=== PATIENT | female | born 1975 | race Hispanic/Latino ===

== ENCOUNTER 2019-03-06 13:31 | Emergency (ER) | payer BC ==
[2019-03-06 15:39] LABS: Absolute Lymphocytes (CBC) 2.8 K/uL (0.7-4.9); Absolute Monocytes 0.6 K/uL (0.1-1.3); Absolute Neutrophil 4.7 K/uL (1.8-8.0); Basophils % 1.1 % (0-1.3); Eosinophils % 3.3 % (0-4.4); Hematocrit 41.2 % (36.0-45.0); Lymphocytes % 33.3 % (15.3-44.8); MPV 9.4 fL (7.6-11.3)
[2019-03-06 15:50] LABS: Potassium 4.5 mmol/L (3.5-5.1)
[2019-03-06 16:02] LABS: Urine Blood 3+ (NEG); Urine Glucose NEGATIVE (NEG); Urine Protein 3+ (NEG); Urine pH 8.5 (5.0-7.0)
[2019-03-06 16:32] LABS: Blood Morphology Comment NOT SEEN (NOT SEEN); Platelet Estimate ADEQ; Urine White Blood Cell Casts OK
--- NOTE | 2019-03-06 17:39 | EDPHYS ---
Physician Documentation [facility] Name: Rose Mary Quintanilla Age: 43 yrs Sex: Female : 1975 Arrival Date: 03/06/2019 Time: 13:33 Bed 8 Private MD: ED Physician Joe Green HPI: 03/06 15:00 This 43 yrs old Female presents to ER via Ambulatory with complaints of pm1 Abdominal Pain. 15:00 The patient presents with abdominal pain in the left lower quadrant. Onset: The pm1 symptoms/episode began/occurred 2 day(s) ago. The symptoms do not radiate. Associated signs and symptoms: Pertinent positives: vaginal bleeding, Pertinent negatives: nausea, vomiting, and diarrhea. The symptoms are described as crampy. Modifying factors: The symptoms are alleviated by nothing, the symptoms are aggravated by nothing. Severity of pain: in the emergency department the pain is unchanged. The patient has not experienced similar symptoms in the past. The patient has been recently seen by a physician: Logan for vaginal bleeding for the past 2 months. Mirena placed 2 weeks ago. Patient with LLQ pain for the last two days. Onset after exercising legs. 15:00 LLQ pain radiates down his left leg. pm1 Historical: - Allergies: 13:44 No Known Allergies; aa5 - PMHx: 13:44 Thyroid problem; aa5 - PSHx: 13:44 Tubal ligation; aa5 - Immunization history:: Adult Immunizations unknown. - Social history:: Smoking status: Patient/guardian denies using tobacco. - Ebola Screening: : No symptoms or risks identified at this time. ROS: 15:00 Constitutional: Negative for fever, chills, and weight loss, Eyes: Negative for injury, pm1 pain, redness, and discharge, ENT: Negative for injury, pain, and discharge, Neck: Negative for injury, pain, and swelling, Cardiovascular: Negative for chest pain, palpitations, and edema, Respiratory: Negative for shortness of breath, cough, wheezing, and pleuritic chest pain. 15:00 Back: Negative for injury and pain, : Negative for injury, bleeding, discharge, and swelling, MS/Extremity: Negative for injury and deformity, Skin: Negative for injury, rash, and discoloration, Neuro: Negative for headache, weakness, numbness, tingling, and seizure. 15:00 Abdomen/GI: Positive for abdominal pain, of the left lower quadrant, Negative for nausea, vomiting, and diarrhea. Exam: 15:00 Constitutional: This is a well developed, well nourished patient who is awake, alert, pm1 and in no acute distress. Head/Face: Normocephalic, atraumatic. Eyes: Pupils equal round and reactive to light, extra-ocular motions intact. Lids and lashes normal. Conjunctiva and sclera are non-icteric and not injected. Cornea within normal limits. Periorbital areas with no swelling, redness, or edema. ENT: Nares patent. No nasal discharge, no septal abnormalities noted. Tympanic membranes are normal and external auditory canals are clear. Oropharynx with no redness, swelling, or masses, exudates, or evidence of obstruction, uvula midline. Mucous membranes moist. Neck: Trachea midline, no thyromegaly or masses palpated, and no cervical lymphadenopathy. Supple, full range of motion without nuchal rigidity, or vertebral point tenderness. No Meningismus. Chest/axilla: Normal chest wall appearance and motion. Nontender with no deformity. No lesions are appreciated. Cardiovascular: Regular rate and rhythm with a normal S1 and S2. No gallops, murmurs, or rubs. Normal PMI, no JVD. No pulse deficits. Respiratory: Lungs have equal breath sounds bilaterally, clear to auscultation and percussion. No rales, rhonchi or wheezes noted. No increased work of breathing, no retractions or nasal flaring. Back: No spinal tenderness. No costovertebral tenderness. Full range of motion. Skin: Warm, dry with normal turgor. Normal color with no rashes, no lesions, and no evidence of cellulitis. MS/ Extremity: Pulses equal, no cyanosis. Neurovascular intact. Full, normal range of motion. 15:00 Abdomen/GI: Inspection: abdomen appears normal, Palpation: soft, mild abdominal tenderness, in the left lower quadrant, mass, is not appreciated, rebound tenderness, is not appreciated. 15:00 Neuro: Orientation: is normal, Motor: is normal, Sensation: is normal, no obvious gross deficits, Gait: is steady, at a normal pace, without difficulty. Vital Signs: 13:44 BP 126 / 81; Pulse 82; Resp 16 S; Temp 98.2(TE); Pulse Ox 100% on R/A; Weight 72.57 kg aa5 (R); Height 5 ft. 6 in. (167.64 cm) (R); Pain 6/10; 15:00 BP 118 / 78; Pulse 76; Resp 18; Pulse Ox 99% on R/A; ph 16:00 BP 131 / 78; Pulse 75; Resp 18; Pulse Ox 99% ; ph 17:00 BP 129 / 89; Pulse 74; Resp 18; Pulse Ox 100% ; ph 18:15 BP 120 / 74; Pulse 75; Resp 18; Temp 97.9; Pulse Ox 100% on R/A; ph 13:44 Body Mass Index 25.82 (72.57 kg, 167.64 cm) aa5 MDM: 14:08 Patient medically screened. pm1 17:36 Data reviewed: vital signs. Data interpreted: Pulse oximetry: on room air is 100 %. pm1 Interpretation: normal. Counseling: I had a detailed discussion with the patient and/or guardian regarding: the historical points, exam findings, and any diagnostic results supporting the discharge/admit diagnosis, lab results, radiology results, the need for outpatient follow up, to return to the emergency department if symptoms worsen or persist or if there are any questions or concerns that arise at home. 03/06 14:38 Order name: Basic Metabolic Panel; Complete Time: 16:21 pm1 03/06 14:38 Order name: CBC with Diff; Complete Time: 16:40 pm1 03/06 14:38 Order name: CT Abd/Pelvis - W/Contrast pm1 03/06 15:29 Order name: Urine Dipstick--Ancillary (enter results); Complete Time: 16:21 bd 03/06 15:29 Order name: Urine --Ancillary (enter results); Complete Time: 16:21 bd 03/06 15:57 Order name: CBC Smear Scan; Complete Time: 16:40 EDMS 03/06 14:38 Order name: Urine Test (obtain specimen); Complete Time: 15:21 pm03/06 14:38 Order name: IV Saline Lock; Complete Time: 18:27 pm1 03/06 14:38 Order name: Labs collected and sent; Complete Time: 15:21 pm1 03/06 14:38 Order name: NPO; Complete Time: 14:49 pm1 03/06 14:38 Order name: Urine Dipstick-Ancillary (obtain specimen); Complete Time: 15:21 pm1 03/06 14:44 Order name: Transvaginal Study Probe EDAZ Administered Medications: 18:27 Drug: TORadol 30 mg Route: IVP; Site: right antecubital; sg Disposition: 03/07 06:51 Co-signature as Attending Physician, Joe Green MD I agree with the assessment and the [facility] plan of care. Disposition: 03/06/19 17:38 Discharged to Home. Impression: Unspecified abdominal pain, Abnormal uterine and vaginal bleeding, unspecified. - Condition is Stable. - Discharge Instructions: Abdominal Pain, Adult, Abnormal Uterine Bleeding. - Prescriptions for Diclofenac Sodium 75 mg Oral Tablet Sustained Release - take 1 tablet by ORAL route 2 times per day; 30 tablet. Cyclobenzaprine 10 mg Oral Tablet - take 1 tablet by ORAL route every 8 hours As needed; 30 tablet. - Medication Reconciliation Form, Thank You Letter, Antibiotic Education, Prescription Opioid Use form. - Follow up: Emergency Department; When: As needed; Reason: Worsening of condition. Follow up: Private Physician; When: 2 - 3 days; Reason: Recheck today's complaints, Continuance of care, Re-evaluation by your physician. Follow up: Briseyda Ford MD; When: 2 - 3 days; Reason: Recheck today's complaints, Continuance of care, Re-evaluation by your physician. - Problem is new. - Symptoms have improved. Signatures: Dispatcher [employer] EDAZ Derrick Richardson RN RN sg Anderson, Corey, MD MD cha Calderon, Audri, RN RN aa5 Lacho Soto NP STAKING TECHNICIAN pm1 Corrections: (The following items were deleted from the chart) 03/06 14:44 14:40 Pelvis Complete+US.RAD.BRZ ordered. EDAZ EDAZ 17:38 17:38 03/06/2019 17:38 Discharged to Home. Impression: Unspecified abdominal pain; pm1 Abnormal uterine and vaginal bleeding, unspecified. Condition is Stable. Forms are Medication Reconciliation Form, Thank You Letter, Antibiotic Education, Prescription Opioid Use. Follow up: Emergency Department; When: As needed; Reason: Worsening of condition. Follow up: Private Physician; When: 2 - 3 days; Reason: Recheck today's complaints, Continuance of care, Re-evaluation by your physician. Problem is new. Symptoms have improved. pm1 18:36 17:38 03/06/2019 17:38 Discharged to Home. Impression: Unspecified abdominal pain; aa5 Abnormal uterine and vaginal bleeding, unspecified. Condition is Stable. Discharge Instructions: Abdominal Pain, Adult, Abnormal Uterine Bleeding. Forms are Medication Reconciliation Form, Thank You Letter, Antibiotic Education, Prescription Opioid Use. Follow up: Emergency Department; When: As needed; Reason: Worsening of condition. Follow up: Private Physician; When: 2 - 3 days; Reason: Recheck today's complaints, Continuance of care, Re-evaluation by your physician. Follow up: Mini Rekhi; When: 2 - 3 days; Reason: Recheck today's complaints, Continuance of care, Re-evaluation by your physician. Problem is new. Symptoms have improved. pm1
--- NOTE | 2019-03-06 17:39 | ER ---
Nurse's Notes [facility] Name: Rose Mary Quintanilla Age: 43 yrs Sex: Female : 1975 Arrival Date: 03/06/2019 Time: 13:33 Bed 8 Private MD: Diagnosis: Unspecified abdominal pain;Abnormal uterine and vaginal bleeding, unspecified Presentation: 03/06 13:41 Presenting complaint: Patient states: "I've had my period for the whole month of february and on february 21 the hazardous material specialist gave me the Mirena to regulate my periods but they've been getting heavier". Pt also c/o pain to LLQ. Pt reports transvaginal US on 01/29/19 and diagnosed with mass to left ovary most likely hemorrhagic cyst. Transition of care: patient was not received from another setting of care. Onset of symptoms was February 2019. Risk Assessment: Do you want to hurt yourself or someone else? Patient reports no desire to harm self or others. Initial Sepsis Screen: Does the patient meet any 2 criteria? No. Patient's initial sepsis screen is negative. Does the patient have a suspected source of infection? No. Patient's initial sepsis screen is negative. Care prior to arrival: None. 13:41 Method Of Arrival: Ambulatory aa5 13:41 Acuity: MATT 3 aa5 Historical: - Allergies: 13:44 No Known Allergies; aa5 - PMHx: 13:44 Thyroid problem; aa5 - PSHx: 13:44 Tubal ligation; aa5 - Immunization history:: Adult Immunizations unknown. - Social history:: Smoking status: Patient/guardian denies using tobacco. - Ebola Screening: : No symptoms or risks identified at this time. Screenin:03 Abuse screen: Denies threats or abuse. Denies injuries from another. Nutritional ph screening: On. Tuberculosis screening: No symptoms or risk factors identified. Fall Risk None identified. Assessment: 14:30 General: Appears in no apparent distress. comfortable, obese, Behavior is calm, ph cooperative, appropriate for age. Pain: Complains of pain in left lower quadrant. Neuro: Level of Consciousness is awake, alert, obeys commands, Oriented to person, place, time, situation. Cardiovascular: Capillary refill < 3 seconds in bilateral fingers Patient's skin is warm and dry. Respiratory: Airway is patent Respiratory effort is even, unlabored, Respiratory pattern is regular, symmetrical. GI: Abdomen is flat, non-distended, Bowel sounds present X 4 quads. Abd is soft X 4 quads Abdomen is tender to palpation in left lower quadrant. : Reports pain in left lower quadrant(s) vaginal bleeding that is heavy flow. Derm: Skin is intact, is healthy with good turgor, Skin is pink, warm \\T\\ dry. Musculoskeletal: Circulation, motion, and sensation intact. Range of motion: intact in all extremities. 16:00 Reassessment: Patient appears in no apparent distress at this time. Patient and/or ph family updated on plan of care and expected duration. Pain level reassessed. Patient is alert, oriented x 3, equal unlabored respirations, skin warm/dry/pink. Pt resting quietly, awaiting lab results, CT and US. 17:02 Reassessment: Patient appears in no apparent distress at this time. Patient and/or ph family updated on plan of care and expected duration. Pain level reassessed. Patient is alert, oriented x 3, equal unlabored respirations, skin warm/dry/pink. Pt taken to CT via wheelchair. 18:35 Reassessment: Patient is alert, oriented x 3, equal unlabored respirations, skin aa5 warm/dry/pink. Pt states "I do work out every day at the gym and a few days ago I did some leg exercises and the next day is when the pain started so maybe I did something to hurt my leg". . Vital Signs: 13:44 BP 126 / 81; Pulse 82; Resp 16 S; Temp 98.2(TE); Pulse Ox 100% on R/A; Weight 72.57 kg aa5 (R); Height 5 ft. 6 in. (167.64 cm) (R); Pain 6/10; 15:00 BP 118 / 78; Pulse 76; Resp 18; Pulse Ox 99% on R/A; ph 16:00 BP 131 / 78; Pulse 75; Resp 18; Pulse Ox 99% ; ph 17:00 BP 129 / 89; Pulse 74; Resp 18; Pulse Ox 100% ; ph 18:15 BP 120 / 74; Pulse 75; Resp 18; Temp 97.9; Pulse Ox 100% on R/A; ph 13:44 Body Mass Index 25.82 (72.57 kg, 167.64 cm) aa5 ED Course: 13:33 Patient arrived in ED. rg4 13:41 Arm band placed on. aa5 13:44 Triage completed. aa5 14:07 Lacho Soto NP [facility]. pm1 14:07 Joe Green MD is Attending Physician. pm1 14:40 Radiology exam delayed due to lab results not completed at this time. (BUN/Creatinine). sj 15:08 Transvaginal Study Probe In Process Unspecified. EDMS 15:20 Missed attempt(s): 20 gauge in right antecubital area. Bleeding controlled, band aid ms applied, catheter tip intact. 15:35 Radiology exam delayed due to lab results not completed at this time. (BUN/Creatinine). 16:15 Apple Bell, RN is Primary Nurse. ph 16:58 Inserted saline lock: 22 gauge in right antecubital area, using aseptic technique. ph 17:01 CT completed. Patient tolerated procedure well. Patient moved to CT. Patient moved back mi from CT. 17:01 CT Abd/Pelvis - W/Contrast In Process Unspecified. EDMS 17:04 Patient has correct armband on for positive identification. Bed in low position. Call ph light in reach. Side rails up X 1. Pulse ox on. NIBP on. Door closed. Noise minimized. Warm blanket given. Head of bed elevated. 17:38 Briseyda Ford MD is Referral Physician. pm1 18:33 No provider procedures requiring assistance completed. IV discontinued, intact, aa5 bleeding controlled, No redness/swelling at site. Pressure dressing applied. Administered Medications: 18:27 Drug: TORadol 30 mg Route: IVP; Site: right antecubital; sg Outcome: 17:38 Discharge ordered by . pm1 18:35 Discharged to home ambulatory, with family. aa5 18:35 Condition: improved 18:35 Discharge instructions given to patient, Instructed on discharge instructions, follow up and referral plans. medication usage, Demonstrated understanding of instructions, follow-up care, medications, Prescriptions given X 2. 18:36 Patient left the ED. aa5 Signatures: Dispatcher [employer] EDMS Derrick Richardson RN RN Adriane Pinto Maria ms Calderon, Audri, RN RN aa5 Apple Bell, LALO RN ph Lacho Soto NP BULB ASSEMBLER pm1 Sophie Giles rg4 Jeancarlos Patel Corrections: (The following items were deleted from the chart) 13:45 13:44 Pulse 82bpm; Resp 16bpm; Spontaneous; Pulse Ox 100% RA; Temp 98.2F Temporal; aa5 72.57 kg Reported; Height 5 ft. 6 in. Reported; BMI: 25.8; Pain 6/10; aa5
[2019-03-06] MEDS ORDERED: KETOROLAC 30 MG/ML INJ ONE (18:37)
--- NOTE | 2019-03-07 11:30 | RAD REPORT ---
EXAM DESCRIPTION: US - Transvaginal Study Probe - 03/06/2019 3:07 pm CLINICAL HISTORY: Left lower quadrant pain with vaginal bleeding COMPARISON: January 2019 FINDINGS: The uterus measures 8 x 5 x 6cm. A fibroid is not seen. IUD is present within the endometr ium. Endometrial stripe is not thickened. The ovaries are normal in size and echotexture. Right and left adnexal unremarkable No significant free fluid is seen. IMPRESSION: IUD in place Unremarkable exam
--- NOTE | 2019-03-07 12:24 | RAD REPORT ---
EXAM DESCRIPTION: CT - Abdomen Pelvis W Contrast - 03/06/2019 5:01 pm CLINICAL HISTORY: Abdominal pain/left lower quadrant pain COMPARISON: none. TECHNIQUE: Computed axial tomography of the abdomen pelvis was obtained. 100 cc Isovue-300 was admin istered intravenously. Oral contrast was not requested which limits evaluation of bowel. All CT scans are performed using dose optimization technique as appropriate and may include automated exposure control or mA/KV adjustment according to patient size. FINDINGS: The liver, spleen, pancreas, adrenal and kidneys appear unremarkable. There is no evidence of diverticulitis. Normal appendix. IUD in place. Small amount of free fluid may be physiologic IMPRESSION: No acute abnormality is displayed.
== END 2019-03-06 18:36 | disposition home or self-care (01) ==
LOC: ER 13:31
DX: N93.9 Abnormal uterine and vaginal bleeding, unspecified (principal)
CPT/HCPCS: 36415; 74177; 76830; 80048; 81003; 81025; 85025; 96374; 99284; Q9967